=== PATIENT | male | born 1955 | race Caucasian/White ===

== ENCOUNTER 2018-04-20 06:48 | Emergency (ER) | payer MEDICAID ==
[~2018-04-20] VITALS: Ht 185.4 cm; Wt 110.0 kg
[~2018-04-20 06:48] MED LIST: AMOX-291 PO; FURO40TA6 PO; POTA10TA31 PO; SPIR25TA5 PO
[2018-04-20 06:52] VITALS: BP 126/94
[2018-04-20] MEDS ORDERED: ASPI-496 PO (07:05)
[2018-04-20] MEDS ORDERED: DIPHENHYDRAMINE 50 MG/ML, 1ML IM ONE (07:30)
[2018-04-20] MEDS ORDERED: MINERA CRM, 60GM TP ONE (07:30)
== END 2018-04-20 07:36 | disposition home or self-care (01) ==
LOC: ED 07:15
DX: L20.9 Atopic dermatitis, unspecified (principal); L20.84 Intrinsic (allergic) eczema; I10 Essential (primary) hypertension
CPT/HCPCS: 99283